=== PATIENT | female | born 1960 | race Caucasian/White ===

== ENCOUNTER 2018-10-23 07:47 | Observation (INO) | payer OTHER ==
[2018-10-23] MEDS: SOD CHLORIDE 0.9% 1,000 ML IV ×2 (06:30→16:58)
[~2018-10-23 07:47] MED LIST: CEFAZOLIN 2 GM/50 ML (PMX) 50 ML IVPB; HYDROmorphONE 1 MG/5 ML IV SYRINGE IV; SOD CHLORIDE 0.9% 1,000 ML IV
[2018-10-23] MEDS ORDERED: LABETALOL HCL 20MG INJ IV (08:00)
[2018-10-23] MEDS ORDERED: HYDROmorphONE 1 MG/5 ML IV SYRINGE IV (08:00)
[2018-10-23] MEDS ORDERED: OXYCODONE/ACETAMINOPHEN (5/325) TAB PO (08:00)
[2018-10-23] MEDS ORDERED: PROCHLORPERAZINE 10 MG INJ IV (08:00)
[2018-10-23] MEDS ORDERED: ROCURONIUM 50 MG INJ (09:58)
[2018-10-23] MEDS ORDERED: LIDOCAINE 2% (SDV) 5 ML INJ (09:58)
[2018-10-23] MEDS ORDERED: FENTAnyl 50 MCG/ML VIAL ×2 (09:58→11:23)
[2018-10-23] MEDS ORDERED: PROPOFOL 20 ML (09:58)
[2018-10-23] MEDS ORDERED: SCOPOLAMINE 1.5 MG PATCH (10:00)
[2018-10-23] MEDS ORDERED: PROPOFOL 40 ML ×2 (10:00→11:01)
[2018-10-23] MEDS: BUPIVACAINE 0.25% (MPF) 30 ML INJ (10:05)
[2018-10-23] MEDS ORDERED: DEXAMETHASONE 4 MG/ML 5 ML INJ (10:06)
[2018-10-23] MEDS ORDERED: FAMOTIDINE 20 MG INJ (10:06)
[2018-10-23] MEDS ORDERED: METOCLOPRAMIDE 10 MG INJ (10:06)
[2018-10-23] MEDS ORDERED: ONDANSETRON 4 MG INJ (10:06)
[2018-10-23] MEDS ORDERED: NEOSTIGMINE 3 MG/3 ML SYRINGE (10:54)
[2018-10-23] MEDS ORDERED: GLYCOPYRROLATE 0.4 MG INJ (10:54)
[2018-10-23] MEDS ORDERED: EPHEDrine 25 MG/5 ML SYG (11:08)
[2018-10-23] MEDS ORDERED: HYDROCODONE/APAP (5/325) TAB PO (11:30)
[2018-10-23] MEDS: HYDROmorphONE 1 MG/5 ML IV SYRINGE IV ×2 (11:38→11:45)
[2018-10-23] MEDS: MEPERIDINE 25 MG INJ IV (11:39)
[2018-10-23] MEDS: ONDANSETRON 4 MG INJ IV (11:39)
[2018-10-23] MEDS: OXYCODONE/ACETAMINOPHEN (5/325) TAB PO (11:58)
[2018-10-23] MEDS ORDERED: HYDROmorphONE 1 MG/ML SYG IV (14:51)
[2018-10-23] MEDS: DIAZEPAM 5 MG TAB PO (14:56)
[2018-10-23] MEDS: HYDROmorphONE 0.5 MG/0.5 ML SYG IV (14:59)
[2018-10-23] MEDS: HYDROCODONE/APAP (5/325) TAB PO (20:26)
[2018-10-23] MEDS ORDERED: morphine 2 MG INJ IV (20:30)
[2018-10-23] MEDS: CEFAZOLIN 2 GM/50 ML (PMX) 50 ML IVPB (22:35)
[2018-10-24] MEDS: HYDROCODONE/APAP (5/325) TAB PO ×2 (03:23→21:50)
[2018-10-24] MEDS: CEFAZOLIN 2 GM/50 ML (PMX) 50 ML IVPB ×2 (05:55→13:58)
[2018-10-24 06:20] LABS: ADD MAN DIFF? NO; BASOPHILS % 0.2 % (0.0-2.0); HEMATOCRIT 32.1 % (37.0-47.0); HEMOGLOBIN 10.6 g/dl (12.0-16.0); LYMPHOCYTES # 1.3 10^3/ul (0.8-2.9); LYMPHOCYTES % 10.1 % (15.0-51.0); MEAN CORPUSCULAR HEMOGLOBIN 31.1 pg (29.0-33.0); MEAN CORPUSCULAR VOLUME 94.1 fl (82.0-101.0); MONOCYTE # 0.6 10^3/ul (0.3-0.9); MONOCYTES % 4.3 % (0.0-11.0); NEUTROPHIL # 11.2 10^3/ul (1.6-7.5); NEUTROPHILS % 84.8 % (39.0-77.0); PLATELET COUNT 249 10^3/UL (140-415); RED BLOOD COUNT 3.41 10^6/ul (4.20-5.40); RED CELL DISTRIBUTION WIDTH 11.6 % (11.5-14.5)
[2018-10-24 06:20] LABS: WHITE BLOOD COUNT 13.2 10^3/ul (4.8-10.8)
[2018-10-24 06:47] LABS: ALANINE AMINOTRANSFERASE 17 IU/L (13-69); ALBUMIN 2.9 g/dl (3.3-4.9); ALBUMIN/GLOBULIN RATIO 1.11; ALKALINE PHOSPHATASE 78 IU/L (42-121); ANION GAP 5 (5-13); ASPARTATE AMINO TRANSFERASE 21 IU/L (15-46); BILIRUBIN,INDIRECT 0.1 mg/dl (0-1.1); BILIRUBIN,TOTAL 0.1 mg/dl (0.2-1.3); BLOOD UREA NITROGEN 20 mg/dl (7-20); CALCIUM 9.5 mg/dl (8.4-10.2); CARBON DIOXIDE 21 mmol/L (21-31); CHLORIDE 111 mmol/L (97-110); CREATININE 0.91 mg/dl (0.44-1.00); Estimated GFR > 60 mL/min (>60); GLUCOSE 113 mg/dl (70-220); POTASSIUM 4.3 mmol/L (3.5-5.1); SODIUM 137 mmol/L (135-144); TOTAL PROTEIN 5.5 g/dl (6.1-8.1)
[2018-10-25 06:10] LABS: ADD MAN DIFF? NO
[2018-10-25 06:13] LABS: BASOPHIL # 0.1 10^3/ul (0.0-0.1); BASOPHILS % 0.5 % (0.0-2.0); EOSINOPHILS # 0.1 10^3/ul (0.0-0.5); HEMOGLOBIN 10.3 g/dl (12.0-16.0); LYMPHOCYTES # 3.3 10^3/ul (0.8-2.9); LYMPHOCYTES % 30.6 % (15.0-51.0); MEAN CORPUSCULAR HEMOGLOBIN 29.9 pg (29.0-33.0); MEAN CORPUSCULAR HGB CONC 32.2 g/dl (32.0-37.0); MEAN CORPUSCULAR VOLUME 92.8 fl (82.0-101.0); MEAN PLATELET VOLUME 8.6 fl (7.4-10.4); MONOCYTE # 0.7 10^3/ul (0.3-0.9); MONOCYTES % 6.2 % (0.0-11.0); NEUTROPHIL # 6.7 10^3/ul (1.6-7.5); NEUTROPHILS % 61.4 % (39.0-77.0); PLATELET COUNT 254 10^3/UL (140-415); RED BLOOD COUNT 3.45 10^6/ul (4.20-5.40); RED CELL DISTRIBUTION WIDTH 11.8 % (11.5-14.5)
[2018-10-25 06:13] LABS: WHITE BLOOD COUNT 10.9 10^3/ul (4.8-10.8)
[2018-10-25 06:52] LABS: ANION GAP 6 (5-13); BLOOD UREA NITROGEN 20 mg/dl (7-20); CALCIUM 9.9 mg/dl (8.4-10.2); CARBON DIOXIDE 26 mmol/L (21-31); CHLORIDE 106 mmol/L (97-110); CREATININE 0.93 mg/dl (0.44-1.00); Estimated GFR > 60 mL/min (>60); GLUCOSE 90 mg/dl (70-220); POTASSIUM 3.7 mmol/L (3.5-5.1); SODIUM 138 mmol/L (135-144)
[2018-10-25] MEDS: LISINOPRIL 5 MG TAB PO (13:30)
[2018-10-25] MEDS: FISH OIL 1,000 MG CAP PO (14:42)
[2018-10-25] MEDS: FUROSEMIDE 20 MG TAB PO (14:42)
[2018-10-25] MEDS ORDERED: GABAPENTIN 400 MG CAP PO (21:00)
[2018-10-25] MEDS ORDERED: ATORVASTATIN 80 MG TAB PO (21:00)
[2018-10-26] MEDS ORDERED: HYDROXYCHLOROQUINE 200 MG TAB PO (09:00)
== END 2018-10-25 15:16 | disposition home or self-care (01) ==
LOC: SDS 07:47 → REC 14:43 → 2NE 16:18
DX: K43.6 Other and unspecified ventral hernia with obstruction, without gangrene (principal); K43.0 Incisional hernia with obstruction, without gangrene; K66.0 Peritoneal adhesions (postprocedural) (postinfection); R19.00 Intra-abdominal and pelvic swelling, mass and lump, unspecified site; E78.00 Pure hypercholesterolemia, unspecified; I10 Essential (primary) hypertension; F17.200 Nicotine dependence, unspecified, uncomplicated
CPT/HCPCS: 22903; 80048; 80053; 85025; 88302; 88307; G0378